=== PATIENT | female | born 1960 | race Caucasian/White ===

== ENCOUNTER → 2016-06-01 | Outpatient (REF) | payer BC | LOC: M LAB REF 16:38 | PROVIDERS: ATTEND Internal Medicine | DX: B34.9 Viral infection, unspecified (principal) ==

== ENCOUNTER → 2016-08-31 | Outpatient (CLI) | payer OTHER ==
--- NOTE | 2016-08-31 10:52 | REP ---
Right hand four views : There is no fracture or dislocation. Mineralization and joint spaces are normal. There are no calcifications or foreign bodies. Impression: Negative right hand . Signed by Fredy Rawls MD 08/31/2016 10:44 A
== END ==
LOC: M WUC 10:16
PROVIDERS: ATTEND Physician Assistant
DX: S60.221A Contusion of right hand, initial encounter (principal); X58.XXXA Exposure to other specified factors, initial encounter; Y92.89 Other specified places as the place of occurrence of the external cause; Y93.89 Activity, other specified; Y99.8 Other external cause status

== ENCOUNTER → 2016-11-11 | Outpatient (REF) | payer BC | LOC: M LAB REF 18:01 | PROVIDERS: ATTEND Nurse Practitioner Family | DX: G40.89 Other seizures (principal) ==

== ENCOUNTER → 2016-11-25 | Outpatient (REF) | payer BC | LOC: M LAB REF 16:36 | PROVIDERS: ATTEND Internal Medicine | DX: F41.9 Anxiety disorder, unspecified (principal); F32.9 Major depressive disorder, single episode, unspecified ==

== ENCOUNTER → 2016-11-25 | Outpatient (CLI) | payer BC ==
--- NOTE | 2016-11-26 06:49 | REP ---
Clinical: Lung screening. History smoking. Comparison: 08/28/2015 Technique: Axial low-dose noncontrast images from the thoracic inlet to the upper abdomen using lung screening technique. Findings: The lung parra demonstrate stable chronic-appearing interstitial changes and biapical scarring similar to prior examination. There is a new subtle subpleural area of opacity along the anterior right upper lobe (images 55 - 58) which may represent progressive scarring and roughly measures approximately 6 mm. No further consolidation, significant nodule or mass lesion is appreciated. No pleural effusion/reaction or pneumothorax. Tracheobronchial tree is patent. Mediastinum demonstrates mild atherosclerotic changes of the coronary arteries without cardiomegaly. Impression: Lung-RADS category III with new subpleural opacity along the anterior right upper lobe. Management recommendations includes 6-month low-dose CT follow-up examination. Signed by Gamaliel Bennett MD 11/26/2016 06:41 A
== END ==
LOC: M RAD 14:26
PROVIDERS: ATTEND Internal Medicine
DX: Z12.2 Encounter for screening for malignant neoplasm of respiratory organs (principal); F17.210 Nicotine dependence, cigarettes, uncomplicated; J98.4 Other disorders of lung

== ENCOUNTER → 2017-01-18 | Outpatient (REF) | payer BC, MEDICAID, SELFPAY | LOC: M LAB REF 17:38 | PROVIDERS: ATTEND Internal Medicine | DX: G40.89 Other seizures (principal) ==

== ENCOUNTER → 2017-05-30 | Outpatient (REF) | payer OTHER ==
[2017-05-30 18:18] LABS: PHENYTOIN (DILANTIN) 15.3 UG/ML (10.0-20.0)
== END ==
LOC: M LAB REF 17:19
DX: G40.89 Other seizures (principal)

== ENCOUNTER → 2017-06-24 | Outpatient (CLI) | payer OTHER | LOC: M RAD 07:59 | DX: Z12.2 Encounter for screening for malignant neoplasm of respiratory organs (principal); F17.210 Nicotine dependence, cigarettes, uncomplicated | CPT/HCPCS: G0297 ==

== ENCOUNTER → 2017-11-29 | Outpatient (REF) | payer OTHER ==
[2017-11-29 17:27] LABS: PHENYTOIN (DILANTIN) 11.3 UG/ML (10.0-20.0)
== END ==
LOC: M LAB REF 16:27
DX: G40.89 Other seizures (principal)
CPT/HCPCS: 80185

== ENCOUNTER 2018-01-07 08:01 | Emergency (ER) | payer OTHER ==
[2018-01-07] MEDS: NS 500 ML IV (09:39)
[2018-01-07] MEDS: ONDANSETRON 4MG/2ML VIAL (J2405) IV ×2 (09:40→12:09)
[2018-01-07 09:55] LABS: BASO % 0.1 % (0.0-1.0); EOS % 0.2 % (0.0-3.0); HEMATOCRIT 39.3 % (36.0-47.0); HEMOGLOBIN 13.5 g/dl (12.0-15.5); IMMATURE GRANULOCYTE % 0.3 % (0-3.0); LYMPH # 1.2 10^3/uL (1.5-4.5); LYMPH % 6.7 % (24.0-44.0); MEAN CORPUSCULAR HEMOGLOBIN 33.3 pg (27.0-33.0); MEAN CORPUSCULAR HGB CONC 34.4 g/dl (32.0-36.5); MONO # 1.1 10^3/uL (0.0-0.8); MONO % 6.2 % (0.0-5.0); NEUTROPHILS % 86.5 % (36.0-66.0); PLATELET COUNT, AUTOMATED 244 10^3/uL (150-450); RED BLOOD COUNT 4.05 10^6/uL (4.00-5.40); RED CELL DISTRIBUTION WIDTH 13.2 % (11.5-14.5); WHITE BLOOD COUNT 18.5 10^3/uL (4.0-10.0)
[2018-01-07 10:12] LABS: PHENYTOIN (DILANTIN) 15.2 UG/ML (10.0-20.0)
[2018-01-07 10:19] LABS: LACTIC ACID SEPSIS PROTOCOL 0.9 MMOL/L (0.4-2.0)
[2018-01-07 10:20] LABS: ALBUMIN 3.4 GM/DL (3.2-5.2); ALKALINE PHOSPHATASE 112 U/L (45-117); ALT/SGPT 20 U/L (12-78); ANION GAP 5 MEQ/L (8-16); AST/SGOT 19 U/L (7-37); BILIRUBIN,DIRECT 0.1 MG/DL (0.0-0.2); BILIRUBIN,TOTAL 0.3 MG/DL (0.2-1.0); BLOOD UREA NITROGEN 13 MG/DL (7-18); CALCIUM LEVEL 7.9 MG/DL (8.5-10.1); CARBON DIOXIDE LEVEL 26 MEQ/L (21-32); CHLORIDE LEVEL 110 MEQ/L (98-107); CPK CREATINE PHOSPHOKINASE 54 U/L (26-192); GLOMERULAR FILTRATION RATE > 60.0 (>51); GLUCOSE, FASTING 100 MG/DL (70-100); LIPASE 149 U/L (73-393); MB/CK RELATIVE INDEX 2.59 (< OR =4); POTASSIUM SERUM 3.8 MEQ/L (3.5-5.1); SODIUM LEVEL 141 MEQ/L (136-145); TOTAL PROTEIN 6.8 GM/DL (6.4-8.2); TROPONIN I < 0.02 NG/ML (< 0.10)
[2018-01-07] MEDS: GASTROGRAFIN SOLUTION 30ML PO ×2 (10:55→11:25)
[2018-01-07] MEDS ORDERED: ISOVUE-370 76% 100ML VIAL (Q9967) As Ordered (11:52)
== END 2018-01-07 13:21 | disposition home or self-care (01) ==
LOC: M ED 08:01
DX: R55 Syncope and collapse (principal); K52.9 Noninfective gastroenteritis and colitis, unspecified; J44.9 Chronic obstructive pulmonary disease, unspecified; E78.5 Hyperlipidemia, unspecified; K21.9 Gastro-esophageal reflux disease without esophagitis; G40.909 Epilepsy, unspecified, not intractable, without status epilepticus; I87.2 Venous insufficiency (chronic) (peripheral); F17.210 Nicotine dependence, cigarettes, uncomplicated
CPT/HCPCS: Q9963

== ENCOUNTER → 2018-05-30 | Outpatient (REF) | payer OTHER ==
[~2018-05-30] MED LIST: ASPI1TAB15 PO; CELE40TA PO; OMEP40CA2 PO; PHEN100C PO; SIMV20TA2 PO; ZOFR4TAB14 PO
== END ==
LOC: M LAB REF 17:46
PROVIDERS: ATTEND Internal Medicine
DX: G40.89 Other seizures (principal)

== ENCOUNTER → 2018-11-01 | Outpatient (REF) | payer OTHER | LOC: M LAB REF 14:45 | PROVIDERS: ATTEND Internal Medicine | DX: R50.9 Fever, unspecified (principal) ==

== ENCOUNTER → 2018-11-07 | Outpatient (REF) | payer OTHER ==
[2018-11-08 09:20] LABS: RUBELLA IgG QUALITATIVE IMMUNE (IMMUNE)
[2018-11-08 14:19] LABS: RUBEOLA IgG ANTIBODY >300.0 AU/mL (Immune >16.4)
== END ==
LOC: M LAB REF 13:24
PROVIDERS: ATTEND Internal Medicine
DX: Z02.1 Encounter for pre-employment examination (principal)

== ENCOUNTER → 2018-11-17 | Outpatient (CLI) | payer OTHER ==
--- NOTE | 2018-11-17 15:08 | REP ---
Low-dose lung screening CT of the chest: Comparisons are 06/24/2017, 11/25/2016 and 08/28/2015. On the 11/25/2069 there was a 7 ml lung nodule, pleural-based, anteriorly in the right upper lobe. This nodule had resolved on 07/01/2017, likely transient atelectasis. This is nodule is not present on the current study. There are no other lung nodules or masses. There are no infiltrates or pleural effusions. There is chronic stable biapical pleuroparenchymal scarring, unchanged from all prior studies. Impression: Category one low-dose lung screening CT of the chest. The probability of malignancy is less than 1%. Depending there is factors consider annual follow-up low-dose lung screening chest CT. Electronically Signed by Fredy Rawls MD 11/17/2018 02:58 P
== END ==
LOC: M RAD 11:54
PROVIDERS: ATTEND Internal Medicine
DX: Z12.2 Encounter for screening for malignant neoplasm of respiratory organs (principal); F17.210 Nicotine dependence, cigarettes, uncomplicated; J98.4 Other disorders of lung

== ENCOUNTER → 2019-09-11 | Outpatient (REF) | payer OTHER ==
[~2019-09-11] MED LIST changes: +ASPI-546 PO; -ASPI1TAB15 PO; -OMEP40CA2 PO; +OMEP40CA97 PO; -SIMV20TA2 PO; +SIMV20TA22 PO
== END ==
LOC: M LAB REF 15:13
PROVIDERS: ATTEND Internal Medicine
DX: G40.89 Other seizures (principal)

== ENCOUNTER → 2019-11-08 | Outpatient (REF) | payer OTHER | LOC: M LAB REF 11:11 | PROVIDERS: ATTEND Internal Medicine | DX: G40.89 Other seizures (principal) ==

== ENCOUNTER → 2020-04-10 | Outpatient (REF) | payer OTHER | LOC: M LAB REF 16:32 | PROVIDERS: ATTEND Internal Medicine | DX: G40.89 Other seizures (principal) ==

== ENCOUNTER → 2020-05-23 | Outpatient (CLI) | payer OTHER ==
--- NOTE | 2020-05-23 10:34 | REP ---
INDICATION: PAIN. COMPARISON: None. TECHNIQUE: There are three views. FINDINGS: Mineralization is normal. The acromioclavicular and glenohumeral articulations are unremarkable. There is no fracture or dislocation. There are no calcifications or foreign bodies. IMPRESSION: Essentially negative right shoulder. <Electronically signed by Fredy Rawls > 05/23/20 1034
--- NOTE | 2020-05-23 10:35 | REP ---
INDICATION: PAIN. COMPARISON: Right shoulder performed this same date. TECHNIQUE: There are three views. FINDINGS: Mineralization is normal. The acromioclavicular and glenohumeral articulations are unremarkable. There are no calcifications or foreign bodies. There is no fracture or dislocation. IMPRESSION: Negative right scapula. <Electronically signed by Fredy Rawls > 05/23/20 1038
== END ==
LOC: M WUC 09:10
PROVIDERS: ATTEND Internal Medicine
DX: M25.512 Pain in left shoulder (principal); M79.602 Pain in left arm

== ENCOUNTER → 2020-10-13 | Outpatient (REF) | payer OTHER ==
[~2020-10-13] MED LIST changes: +OMEP40CA4 PO; -OMEP40CA97 PO
== END ==
LOC: M LAB REF 11:20
PROVIDERS: ATTEND Internal Medicine
DX: G40.89 Other seizures (principal)

== ENCOUNTER → 2021-04-15 | Outpatient (REF) | payer OTHER | LOC: M LAB REF 11:33 | PROVIDERS: ATTEND Internal Medicine | DX: G40.89 Other seizures (principal); Z12.31 Encounter for screening mammogram for malignant neoplasm of breast ==

== ENCOUNTER 2021-05-10 13:45 | Emergency (ER) | payer OTHER ==
[~2021-05-10] VITALS: Ht 165.1 cm; Wt 51.0 kg
[2021-05-10] MEDS ORDERED: MELO15TA28 PO (14:37)
[2021-05-10] MEDS ORDERED: METH4PACK PO (14:37)
[2021-05-10] MEDS ORDERED: KETOROLAC 30 MG/ML 1ML VIAL IV ONE (16:35)
[2021-05-10] MEDS ORDERED: LIDOCAINE 5% (LIDODERM) PATCH TD ONE (16:35)
[2021-05-10] MEDS ORDERED: NS 1,000 ML IV ONE (16:35)
[2021-05-10 17:08] LABS: BASO % 0.4 % (0.0-1.0); EOS # 0.2 10^3/uL (0.0-0.5); EOS % 1.9 % (0.0-3.0); HEMOGLOBIN 14.2 g/dl (12.0-15.5); LYMPH # 4.7 10^3/uL (1.5-5.0); LYMPH % 43.4 % (24.0-44.0); MEAN CORPUSCULAR HEMOGLOBIN 33.6 pg (27.0-33.0); MEAN CORPUSCULAR HGB CONC 34.6 g/dl (32.0-36.5); MEAN CORPUSCULAR VOLUME 96.9 fl (80.0-96.0); MONO # 0.9 10^3/uL (0.0-0.8); MONO % 8.7 % (2.0-8.0); NEUTROPHILS # 4.9 10^3/uL (1.5-8.5); NEUTROPHILS % 45.3 % (36.0-66.0); PLATELET COUNT, AUTOMATED 312 10^3/uL (150-450); RED BLOOD COUNT 4.23 10^6/uL (4.00-5.40); WHITE BLOOD COUNT 10.7 10^3/uL (4.0-10.0)
[2021-05-10] MEDS ORDERED: ISOVUE-370 76% 100ML VIAL As Ordered ONE (17:08)
[2021-05-10 17:31] LABS: ERYTHROCYTE SEDIMENTATION RATE 8 mm/hr (0-30)
[2021-05-10 17:32] LABS: ALBUMIN 4.1 GM/DL (3.2-5.2); BILIRUBIN,DIRECT 0.1 MG/DL (0.0-0.2); BILIRUBIN,TOTAL 0.3 MG/DL (0.2-1.0); C REACTIVE PROTEIN QUANTITATIV 0.31 MG/DL (0.00-0.30); TOTAL PROTEIN 7.8 GM/DL (6.4-8.2)
[2021-05-10] MEDS ORDERED: MIRA3350 PO (19:03)
[2021-05-10] MEDS ORDERED: LACT20EL PO (19:03)
[2021-05-10] MEDS ORDERED: MAGNESIUM CITRATE 300 ML BTL PO ONE (19:05)
[2021-05-10 19:24] VITALS: BP 131/73
[2021-05-10] MEDS ORDERED: **NOTE PATIENT COMMENT** MISC XX SCH (21:00)
== END 2021-05-10 19:26 | disposition home or self-care (01) ==
LOC: M ED 13:45
DX: K59.00 Constipation, unspecified (principal); R10.9 Unspecified abdominal pain; J44.9 Chronic obstructive pulmonary disease, unspecified; K21.9 Gastro-esophageal reflux disease without esophagitis; E78.5 Hyperlipidemia, unspecified; G40.911 Epilepsy, unspecified, intractable, with status epilepticus; F17.200 Nicotine dependence, unspecified, uncomplicated; Z79.899 Other long term (current) drug therapy
CPT/HCPCS: 74177; 80047; 80076; 81001; 83690; 85025; 85652; 86140; 96361; 96374; 99284; J1885; Q9967

== ENCOUNTER → 2021-06-12 | Outpatient (CLI) | payer OTHER ==
[~2021-06-12] MED LIST changes: +ADV250INH INH; +CALC500T68 PO; +LACT20EL PO; +MELO15TA28 PO; +METH4PACK PO; +MIRA3350 PO; +VITA-243 PO; +VITA100093 PO; +VITMTA PO
== END ==
LOC: M LABSMTC 11:36
PROVIDERS: ATTEND Anesthesiology
DX: Z01.812 Encounter for preprocedural laboratory examination (principal); Z20.822 Contact with and (suspected) exposure to COVID-19

== ENCOUNTER 2021-06-16 08:40 | Day surgery (SDC) | payer OTHER ==
[~2021-06-16] VITALS: Ht 165.1 cm; Wt 47.2 kg
[~2021-06-16 08:40] MED LIST changes: +NS 1,000 ML IV ONE
[2021-06-16] MEDS ORDERED: fentaNYL 100 MCG/2 ML INJECTION As Ordered ONE (10:52)
[2021-06-16 12:01] VITALS: BP 125/63
== END 2021-06-16 12:10 | disposition home or self-care (01) ==
LOC: M OPP 08:40
PROVIDERS: ATTEND Internal Medicine Gastroenterology
DX: K63.5 Polyp of colon (principal); K64.8 Other hemorrhoids; R19.5 Other fecal abnormalities; K29.70 Gastritis, unspecified, without bleeding; K31.A19 Gastric intestinal metaplasia without dysplasia, unspecified site; R12 Heartburn; E78.00 Pure hypercholesterolemia, unspecified; J44.9 Chronic obstructive pulmonary disease, unspecified; F17.210 Nicotine dependence, cigarettes, uncomplicated; Z79.82 Long term (current) use of aspirin; Z79.899 Other long term (current) drug therapy; Z91.048 Other nonmedicinal substance allergy status; Z86.69 Personal history of other diseases of the nervous system and sense organs; Z80.1 Family history of malignant neoplasm of trachea, bronchus and lung; Z80.52 Family history of malignant neoplasm of bladder
CPT/HCPCS: 43239; 45380; 45385; 88305; J3010

== ENCOUNTER → 2021-09-14 | Outpatient (REF) | payer OTHER ==
[~2021-09-14] MED LIST changes: +BACT800T5 PO; +DIFL150T PO; -NS 1,000 ML IV ONE
== END ==
LOC: M LAB REF 12:12
PROVIDERS: ATTEND Internal Medicine
DX: Z51.81 Encounter for therapeutic drug level monitoring (principal); Z79.899 Other long term (current) drug therapy

== ENCOUNTER 2021-09-17 11:51 | Emergency (ER) | payer OTHER ==
[~2021-09-17] VITALS: Ht 165.1 cm; Wt 49.7 kg
[~2021-09-17 11:51] MED LIST changes: -BACT800T5 PO; -DIFL150T PO
[2021-09-17] MEDS ORDERED: BACTRIM 160MG/800MG DS TAB PO ONE (13:55)
[2021-09-17] MEDS ORDERED: BACT800T5 PO (13:57)
[2021-09-17 14:03] VITALS: BP 128/61
[2021-09-17] MEDS ORDERED: DIFL150T PO (14:05)
== END 2021-09-17 14:08 | disposition home or self-care (01) ==
LOC: M ED 11:51
DX: L13.1 Subcorneal pustular dermatitis (principal); E78.5 Hyperlipidemia, unspecified; J44.9 Chronic obstructive pulmonary disease, unspecified; G40.89 Other seizures; F17.200 Nicotine dependence, unspecified, uncomplicated; Z91.048 Other nonmedicinal substance allergy status; Z79.899 Other long term (current) drug therapy; Z79.891 Long term (current) use of opiate analgesic; Z79.51 Long term (current) use of inhaled steroids

== ENCOUNTER → 2021-09-22 | Outpatient (REF) | payer OTHER ==
[~2021-09-22] MED LIST changes: +BACT800T5 PO; +DIFL150T PO
== END ==
LOC: M LAB REF 16:17 → EEVIPCON 16:17
PROVIDERS: ATTEND Internal Medicine
DX: L02.424 Furuncle of left upper limb (principal)

== ENCOUNTER → 2022-03-05 | Outpatient (REF) | payer OTHER | LOC: M LAB REF 16:19 | PROVIDERS: ATTEND Internal Medicine | DX: G40.89 Other seizures (principal) ==

== ENCOUNTER → 2022-04-26 | Outpatient (CLI) | payer OTHER | LOC: M RAD 08:41 | PROVIDERS: ATTEND Internal Medicine | DX: R59.0 Localized enlarged lymph nodes (principal) ==

== ENCOUNTER → 2022-09-10 | Outpatient (REF) | payer OTHER ==
[2022-09-10 11:03] LABS: APPEARANCE, URINE HAZY (CLEAR); BACTERIA, URINE AUTO NEGATIVE (NEGATIVE); BILIRUBIN, URINE AUTO NEGATIVE (NEGATIVE); BLOOD, URINE BLOOD 3+ (NEGATIVE); COLOR, URINE RED (YELLOW); GLUCOSE, URINE (UA) AUTO NEGATIVE (NEGATIVE); KETONE, URINE AUTO NEGATIVE (NEGATIVE); LEUKOCYTE ESTERASE, URINE AUTO NEGATIVE (NEGATIVE); NITRITE, URINE AUTO NEGATIVE (NEGATIVE); PROTEIN, URINE AUTO 1+ mg/dL (NEGATIVE); RBC, URINE AUTO TNTC /HPF (0-3); SPECIFIC GRAVITY URINE AUTO 1.009 (1.002-1.035); SQUAMOUS EPITHELIAL CELL UR AU 0 /HPF (0-6); UROBILINOGEN, URINE AUTO 0.2 mg/dL (0.0-2.0); WBC, URINE AUTO 3 /HPF (0-3)
== END ==
LOC: M LAB REF 10:16
PROVIDERS: ATTEND Nurse Practitioner Family
DX: R31.9 Hematuria, unspecified (principal)

== ENCOUNTER → 2022-09-17 | Outpatient (REF) | payer OTHER | LOC: M LAB REF 12:41 | PROVIDERS: ATTEND Nurse Practitioner Family | DX: R31.9 Hematuria, unspecified (principal) ==

== ENCOUNTER → 2022-11-02 | Outpatient (REF) | payer OTHER | LOC: M LAB REF 11:59 | PROVIDERS: ATTEND Internal Medicine | DX: G40.909 Epilepsy, unspecified, not intractable, without status epilepticus (principal) ==

== ENCOUNTER → 2022-11-05 | Outpatient (CLI) | payer OTHER | LOC: M WUC 14:44 | PROVIDERS: ATTEND Internal Medicine | DX: S20.20XA Contusion of thorax, unspecified, initial encounter (principal); W19.XXXA Unspecified fall, initial encounter ==

== ENCOUNTER → 2022-12-16 | Outpatient (CLI) | payer OTHER | LOC: M WUC 15:19 | PROVIDERS: ATTEND Internal Medicine | DX: S30.0XXA Contusion of lower back and pelvis, initial encounter (principal); X58.XXXA Exposure to other specified factors, initial encounter; Y92.9 Unspecified place or not applicable ==

== ENCOUNTER → 2023-05-13 | Outpatient (CLI) | payer SELFPAY | LOC: M RAD 12:13 | PROVIDERS: ATTEND Internal Medicine | DX: R22.32 Localized swelling, mass and lump, left upper limb (principal) ==

== ENCOUNTER → 2023-05-30 | Outpatient (CLI) | payer OTHER, SELFPAY ==
[~2023-05-30] MED LIST changes: +ISOVUE-370 76% 100ML VIAL ONE; +PROHANCE 279.3MG/ML 15ML VIAL ONE
== END ==
LOC: M PLAIMG 13:20
PROVIDERS: ATTEND Internal Medicine
DX: R22.32 Localized swelling, mass and lump, left upper limb (principal); R07.89 Other chest pain; R05.3 Chronic cough
CPT/HCPCS: 70491; 71260; Q9967

== ENCOUNTER → 2023-06-13 | Outpatient (CLI) | payer OTHER, SELFPAY ==
[~2023-06-13] MED LIST changes: -ISOVUE-370 76% 100ML VIAL ONE; -PROHANCE 279.3MG/ML 15ML VIAL ONE
[2023-06-13 12:45] LABS: PLATELET COUNT, AUTOMATED 350 10^3/uL (150-450)
[2023-06-13 13:06] LABS: INR 1.11; PARTIAL THROMBOPLASTIN TIME 29.7 SECONDS (24.8-34.2)
== END ==
LOC: M LAB 12:22
PROVIDERS: ATTEND Internal Medicine Pulmonary Disease
DX: R91.8 Other nonspecific abnormal finding of lung field (principal)

== ENCOUNTER → 2023-07-15 | Outpatient (CLI) | payer OTHER ==
[~2023-07-15] MED LIST changes: +LIDOCAINE 1% MDV 20ML VIAL As Ordered ONE; +MIDAZOLAM INJ 2MG/2ML VIAL As Ordered ONE; +fentaNYL 100 MCG/2 ML INJECTION As Ordered ONE
[2023-07-15 07:50] VITALS: TEMP 98.9
[2023-07-15 08:19] LABS: HEMATOCRIT 38.5 % (36.0-47.0); MEAN CORPUSCULAR HEMOGLOBIN 33.2 pg (27.0-33.0); MEAN CORPUSCULAR HGB CONC 33.8 g/dl (32.0-36.5); MEAN CORPUSCULAR VOLUME 98.2 fl (80.0-96.0); PLATELET COUNT, AUTOMATED 400 10^3/uL (150-450); RED BLOOD COUNT 3.92 10^6/uL (4.00-5.40); WHITE BLOOD COUNT 10.3 10^3/uL (4.0-10.0)
[2023-07-15 08:45] LABS: INR 1.14; PROTHROMBIN TIME 14.3 SECONDS (12.5-14.5)
[2023-07-15 12:15] VITALS: BP 148/67; O2SAT 97
== END ==
LOC: M IRPRO 07:23
PROVIDERS: ATTEND Internal Medicine Pulmonary Disease
DX: R91.1 Solitary pulmonary nodule (principal); C34.91 Malignant neoplasm of unspecified part of right bronchus or lung
CPT/HCPCS: 32408; 85027; 85610; 88305; 99152; 99153; J2250; J3010

== ENCOUNTER → 2023-08-03 | Outpatient (CLI) | payer OTHER ==
[~2023-08-03] MED LIST changes: +ALLO300T2 PO; +CITA40TA7; +FLUT1BLS8; -LIDOCAINE 1% MDV 20ML VIAL As Ordered ONE; -MIDAZOLAM INJ 2MG/2ML VIAL As Ordered ONE; +MUPI2OI; +MYRB50TA; +ONDA-84 PO; +PROC10TA5 PO; -fentaNYL 100 MCG/2 ML INJECTION As Ordered ONE
== END ==
LOC: M ONCR 08:00
PROVIDERS: ATTEND General Practice
DX: C34.11 Malignant neoplasm of upper lobe, right bronchus or lung (principal); Z86.69 Personal history of other diseases of the nervous system and sense organs; F17.210 Nicotine dependence, cigarettes, uncomplicated; Z79.51 Long term (current) use of inhaled steroids; Z79.82 Long term (current) use of aspirin; Z79.899 Other long term (current) drug therapy; Z90.49 Acquired absence of other specified parts of digestive tract; Z90.81 Acquired absence of spleen; Z91.048 Other nonmedicinal substance allergy status

== ENCOUNTER → 2023-08-09 | Outpatient (CLI) | payer OTHER | LOC: M RAD 13:49 | PROVIDERS: ATTEND General Practice | DX: C34.11 Malignant neoplasm of upper lobe, right bronchus or lung (principal) ==

== ENCOUNTER → 2023-08-09 | Outpatient (CLI) | payer OTHER ==
[~2023-08-09] VITALS: Ht 165.1 cm; Wt 48.6 kg
[~2023-08-09] MED LIST changes: +LIDOCAINE 1% MDV 20ML VIAL As Ordered ONE; +LIDOCAINE W/EPINEPHRINE 1% 20ML VIAL As Ordered ONE; +MIDAZOLAM INJ 2MG/2ML VIAL As Ordered ONE; +ceFAZolin 2 GM/D5W 50 ML IV BAG As Ordered ONE; +ceFAZolin SOD 2 GM in IV 1 EA IV ONE; +fentaNYL 100 MCG/2 ML INJECTION As Ordered ONE
[2023-08-09 14:20] VITALS: TEMP 98.8
[2023-08-09 17:09] VITALS: BP 136/64; O2SAT 93
== END ==
LOC: M IRPRO 13:43
PROVIDERS: ATTEND Specialist
DX: C34.90 Malignant neoplasm of unspecified part of unspecified bronchus or lung (principal)
CPT/HCPCS: 36561; 99152; 99153; C1769; J0690; J2250; J3010

== ENCOUNTER → 2023-08-12 | Outpatient (CLI) | payer OTHER ==
[~2023-08-12] MED LIST changes: -LIDOCAINE 1% MDV 20ML VIAL As Ordered ONE; -LIDOCAINE W/EPINEPHRINE 1% 20ML VIAL As Ordered ONE; -MIDAZOLAM INJ 2MG/2ML VIAL As Ordered ONE; +PROHANCE 279.3MG/ML 15ML VIAL As Ordered ONE; -ceFAZolin 2 GM/D5W 50 ML IV BAG As Ordered ONE; -ceFAZolin SOD 2 GM in IV 1 EA IV ONE; -fentaNYL 100 MCG/2 ML INJECTION As Ordered ONE
== END ==
LOC: M RAD 08:51
PROVIDERS: ATTEND Internal Medicine Hematology & Oncology
DX: C34.00 Malignant neoplasm of unspecified main bronchus (principal)
CPT/HCPCS: 70553; A9576

== ENCOUNTER → 2023-09-14 | Outpatient (RCR) | payer OTHER ==
[~2023-09-14] MED LIST changes: +MIRA50TA2; -PROHANCE 279.3MG/ML 15ML VIAL As Ordered ONE
== END ==
LOC: M ONCR 08-24 14:10
PROVIDERS: ATTEND General Practice
DX: Z51.0 Encounter for antineoplastic radiation therapy (principal); C34.11 Malignant neoplasm of upper lobe, right bronchus or lung

== ENCOUNTER 2023-10-12 09:48 | Outpatient (RCR) | payer OTHER ==
[~2023-10-12 09:48] MED LIST changes: -CITA40TA7; +CITA40TA7 PO; +FAMO20TA PO; -FLUT1BLS8; +FLUT1BLS8 INH; +MAGN400T2 PO; +METO10TA2 PO; -MIRA50TA2; +MIRA50TA2 PO
== END 2023-10-15 ==
LOC: M ONCR 09:48
PROVIDERS: ATTEND General Practice
DX: Z51.0 Encounter for antineoplastic radiation therapy (principal); C34.11 Malignant neoplasm of upper lobe, right bronchus or lung

== ENCOUNTER 2023-10-26 15:44 | Inpatient (IN) | payer OTHER ==
[~2023-10-26] VITALS: Ht 165.1 cm; Wt 47.3 kg
[2023-10-26 16:47] LABS: HEMATOCRIT 25.5 % (36.0-47.0); HEMOGLOBIN 8.8 g/dl (12.0-15.5); MEAN CORPUSCULAR HEMOGLOBIN 35.6 pg (27.0-33.0); MEAN CORPUSCULAR HGB CONC 34.5 g/dl (32.0-36.5); MEAN CORPUSCULAR VOLUME 103.2 fl (80.0-96.0); RED BLOOD COUNT 2.47 10^6/uL (4.00-5.40); WHITE BLOOD COUNT 2.7 10^3/uL (4.0-10.0)
[2023-10-26 17:08] LABS: PLATELET COUNT, AUTOMATED 80 10^3/uL (150-450)
[2023-10-26 17:11] LABS: BASOPHILS 1 % (0-1); EOSINOPHILS 1 % (0-3); LYMPHOCYTES 27 % (16-44); MONOCYTES 11 % (0-5); NEUTROPHILS 58 % (28-66); PLATELET ESTIMATE MARKED DECREASE (NORMAL)
[2023-10-26 17:12] LABS: ANISOCYTOSIS 2+
[2023-10-26 17:14] LABS: HOWELL-JOLLY BODIES 1+
[2023-10-26 17:15] LABS: ALBUMIN 3.6 G/DL (3.2-5.2); ALKALINE PHOSPHATASE 115 U/L (46-116); ALT/SGPT 17 U/L (7.0-40); AST/SGOT 14 U/L (<34); BILIRUBIN,TOTAL 0.3 MG/DL (0.3-1.2); BLOOD UREA NITROGEN 10 MG/DL (9-23); CALCIUM LEVEL 8.9 MG/DL (8.3-10.6); CARBON DIOXIDE LEVEL 28 MMOL/L (20-31); CHLORIDE LEVEL 102 MMOL/L (98-107); CREATININE FOR GFR 0.51 MG/DL (0.55-1.30); GLOMERULAR FILTRATION RATE > 60.0 (>45); GLUCOSE, FASTING 106 MG/DL (74-106); POTASSIUM SERUM 3.6 MMOL/L (3.5-5.1); SODIUM LEVEL 133 MMOL/L (136-145); TOTAL PROTEIN 7.1 G/DL (5.7-8.2)
[2023-10-26] MEDS ORDERED: THERTAB52 PO (21:20)
[2023-10-26] MEDS ORDERED: DILA100C PO (21:20)
[2023-10-26] MEDS ORDERED: ALBU8.5H INH (21:21)
[2023-10-26] MEDS ORDERED: HYDR-643 PO (21:21)
[2023-10-26] MEDS ORDERED: HOME MED LIST COMPLETE! XX SCH (21:25)
[2023-10-26] MEDS ORDERED: MOM 30ML SUSPENSION UDC PO PRN (21:35)
[2023-10-26] MEDS ORDERED: ACETAMINOPHEN TAB 650MG DOSE (2X325MG) PO PRN (21:35)
[2023-10-26] MEDS ORDERED: ALBUTEROL 90 MCG/ACT 8GM HFA INHALER INH PRN (21:50)
[2023-10-26 22:51] VITALS: BP 126/58; TEMP 97.7; O2SAT 95
[2023-10-26] MEDS: PHENYTOIN ER 100 MG CAP PO SCH (23:11)
[2023-10-26] MEDS: CitaloPRAM (CeleXA) 20 MG TAB PO SCH (23:11)
[2023-10-26] MEDS: ASPIRIN 81MG ENTERIC TABLET PO SCH (23:12)
[2023-10-26] MEDS: NS 1,000 ML IV SCH (23:12)
[2023-10-26] MEDS: ASCORBIC ACID 500 MG TAB PO SCH (23:12)
[2023-10-26] MEDS: SIMVASTATIN 20 MG TAB PO SCH (23:12)
[2023-10-26] MEDS: FAMOTIDINE 20 MG TAB PO SCH (23:12)
[2023-10-26] MEDS: PIPERACILLIN/TAZOBACTAM SOD 4.5 GM in D5W MINI-BAG PLUS 50 ML IV SCH (23:13)
[2023-10-27 04:00] VITALS: BP 112/51; TEMP 98.1; O2SAT 96
[2023-10-27 06:04] LABS: HEMATOCRIT 24.2 % (36.0-47.0); HEMOGLOBIN 8.3 g/dl (12.0-15.5); MEAN CORPUSCULAR HEMOGLOBIN 35.6 pg (27.0-33.0); MEAN CORPUSCULAR HGB CONC 34.3 g/dl (32.0-36.5); MEAN CORPUSCULAR VOLUME 103.9 fl (80.0-96.0); RED BLOOD COUNT 2.33 10^6/uL (4.00-5.40); WHITE BLOOD COUNT 2.2 10^3/uL (4.0-10.0)
[2023-10-27 06:27] LABS: PLATELET COUNT, AUTOMATED 68 10^3/uL (150-450)
[2023-10-27 06:30] LABS: ALBUMIN 3.1 G/DL (3.2-5.2); ALKALINE PHOSPHATASE 105 U/L (46-116); ALT/SGPT 13 U/L (7.0-40); AST/SGOT 14 U/L (<34); BILIRUBIN,TOTAL 0.4 MG/DL (0.3-1.2); BLOOD UREA NITROGEN 8 MG/DL (9-23); CALCIUM LEVEL 8.7 MG/DL (8.3-10.6); CARBON DIOXIDE LEVEL 27 MMOL/L (20-31); CHLORIDE LEVEL 109 MMOL/L (98-107); CREATININE FOR GFR 0.49 MG/DL (0.55-1.30); GLOMERULAR FILTRATION RATE > 60.0 (>45); GLUCOSE, FASTING 99 MG/DL (74-106); POTASSIUM SERUM 3.9 MMOL/L (3.5-5.1); SODIUM LEVEL 137 MMOL/L (136-145); TOTAL PROTEIN 6.4 G/DL (5.7-8.2)
[2023-10-27 07:30] VITALS: BP 133/58; TEMP 97.7; O2SAT 95
[2023-10-27] MEDS: DOCUSATE SODIUM 100MG CAPSULE PO SCH (08:14)
[2023-10-27] MEDS: VITAMIN D 1,000 INTERNATIONAL UNITS TABLET PO SCH (08:15)
[2023-10-27] MEDS: OMEPRAZOLE 20MG CAP PO SCH (08:15)
[2023-10-27] MEDS: PHENYTOIN ER 100 MG CAP PO SCH (08:15)
[2023-10-27 12:25] VITALS: BP 136/63; TEMP 97.6; O2SAT 97
[2023-10-28] MEDS ORDERED: PHENYTOIN ER 100 MG CAP PO SCH ×2 (09:00→21:00)
== END 2023-10-27 15:27 | disposition home or self-care (01) | DRG 204 ==
LOC: M ED 15:44 → M ED INP 21:34 → M PCU 22:45
PROVIDERS: ADMIT Family Medicine; ATTEND Family Medicine
DX: R55 Syncope and collapse (principal); C34.90 Malignant neoplasm of unspecified part of unspecified bronchus or lung; R29.6 Repeated falls; I10 Essential (primary) hypertension; E78.5 Hyperlipidemia, unspecified; J44.9 Chronic obstructive pulmonary disease, unspecified; F41.9 Anxiety disorder, unspecified; F32.A Depression, unspecified; D61.810 Antineoplastic chemotherapy induced pancytopenia; D84.9 Immunodeficiency, unspecified; G40.909 Epilepsy, unspecified, not intractable, without status epilepticus; K21.9 Gastro-esophageal reflux disease without esophagitis; Z79.82 Long term (current) use of aspirin; Z79.899 Other long term (current) drug therapy; Z91.048 Other nonmedicinal substance allergy status; Z90.49 Acquired absence of other specified parts of digestive tract; Z98.42 Cataract extraction status, left eye; Z98.41 Cataract extraction status, right eye; Z90.79 Acquired absence of other genital organ(s)

== ENCOUNTER → 2023-10-27 | Outpatient (CLI) | payer OTHER ==
[~2023-10-27] MED LIST changes: +ALBU8.5H INH; +DILA100C PO; +HYDR-643 PO; +THERTAB52 PO
== END ==
LOC: M EKG 15:30
PROVIDERS: ATTEND Student in an Organized Health Care Education/Training Program
DX: R55 Syncope and collapse (principal)

== ENCOUNTER → 2023-11-21 | Outpatient (CLI) | payer OTHER ==
[~2023-11-21] MED LIST changes: +PROHANCE 279.3MG/ML 5ML VIAL As Ordered ONE
== END ==
LOC: M RAD 12:05
PROVIDERS: ATTEND General Practice
DX: C34.11 Malignant neoplasm of upper lobe, right bronchus or lung (principal)
CPT/HCPCS: 70553; A9576

== ENCOUNTER → 2023-11-24 | Outpatient (CLI) | payer OTHER ==
[~2023-11-24] MED LIST changes: +GASTROGRAFIN SOLUTION 30ML As Ordered ONE; +ISOVUE-370 76% 100ML VIAL As Ordered ONE; -PROHANCE 279.3MG/ML 5ML VIAL As Ordered ONE
[2023-11-24 12:19] LABS: BASO % 0.3 % (0.0-1.0); EOS # 0.1 10^3/uL (0.0-0.5); EOS % 2.5 % (0.0-3.0); HEMATOCRIT 25.4 % (36.0-47.0); HEMOGLOBIN 8.6 g/dl (12.0-15.5); LYMPH # 1.1 10^3/uL (1.5-5.0); LYMPH % 29.8 % (24.0-44.0); MEAN CORPUSCULAR HEMOGLOBIN 39.3 pg (27.0-33.0); MEAN CORPUSCULAR HGB CONC 33.9 g/dl (32.0-36.5); MONO # 0.6 10^3/uL (0.0-0.8); MONO % 16.4 % (2.0-8.0); NEUTROPHILS # 1.9 10^3/uL (1.5-8.5); NEUTROPHILS % 50.7 % (36.0-66.0); PLATELET COUNT, AUTOMATED 178 10^3/uL (150-450); RED BLOOD COUNT 2.19 10^6/uL (4.00-5.40); WHITE BLOOD COUNT 3.7 10^3/uL (4.0-10.0)
[2023-11-24 14:04] LABS: ALBUMIN 3.4 G/DL (3.2-5.2); ALKALINE PHOSPHATASE 167 U/L (46-116); ALT/SGPT 10 U/L (7.0-40); AST/SGOT 10 U/L (<34); BILIRUBIN,TOTAL 0.2 MG/DL (0.3-1.2); BLOOD UREA NITROGEN 10 MG/DL (9-23); CALCIUM LEVEL 9.3 MG/DL (8.3-10.6); CARBON DIOXIDE LEVEL 29 MMOL/L (20-31); CHLORIDE LEVEL 102 MMOL/L (98-107); CREATININE FOR GFR 0.49 MG/DL (0.55-1.30); GLOMERULAR FILTRATION RATE > 60.0 (>45); GLUCOSE, FASTING 122 MG/DL (74-106); MAGNESIUM LEVEL 1.6 MG/DL (1.8-2.4); POTASSIUM SERUM 3.9 MMOL/L (3.5-5.1); SODIUM LEVEL 135 MMOL/L (136-145); TOTAL PROTEIN 7.2 G/DL (5.7-8.2)
== END ==
LOC: M RAD 11:16
PROVIDERS: ATTEND Internal Medicine Hematology & Oncology
DX: R07.89 Other chest pain (principal); R05.3 Chronic cough; C34.90 Malignant neoplasm of unspecified part of unspecified bronchus or lung
CPT/HCPCS: 71260; 74177; 80053; 83735; 85025; Q9963; Q9967

== ENCOUNTER → 2023-12-08 | Outpatient (CLI) | payer OTHER ==
[~2023-12-08] MED LIST changes: -GASTROGRAFIN SOLUTION 30ML As Ordered ONE; -ISOVUE-370 76% 100ML VIAL As Ordered ONE; +MEMA10TA PO
== END ==
LOC: M ONCR 15:30
PROVIDERS: ATTEND General Practice
DX: C34.11 Malignant neoplasm of upper lobe, right bronchus or lung (principal); Z87.891 Personal history of nicotine dependence; Z79.899 Other long term (current) drug therapy; Z79.51 Long term (current) use of inhaled steroids; Z79.82 Long term (current) use of aspirin; Z91.048 Other nonmedicinal substance allergy status; Z92.21 Personal history of antineoplastic chemotherapy; Z92.3 Personal history of irradiation

== ENCOUNTER → 2023-12-29 | Outpatient (REF) | payer OTHER ==
[~2023-12-29] MED LIST changes: +ONDA-282 PO
== END ==
LOC: M LAB REF 13:42
PROVIDERS: ATTEND Internal Medicine
DX: G40.909 Epilepsy, unspecified, not intractable, without status epilepticus (principal)

== ENCOUNTER 2024-01-11 13:57 | Outpatient (RCR) | payer OTHER ==
[~2024-01-11 13:57] MED LIST changes: -ADV250INH INH; +ADVA1AER9 INH
== END 2024-01-14 ==
LOC: M ONCR 13:57
PROVIDERS: ATTEND General Practice
DX: Z51.0 Encounter for antineoplastic radiation therapy (principal); C34.11 Malignant neoplasm of upper lobe, right bronchus or lung

== ENCOUNTER → 2024-01-24 | Outpatient (REF) | payer OTHER | LOC: M LAB REF 17:18 | PROVIDERS: ATTEND Internal Medicine | DX: G40.909 Epilepsy, unspecified, not intractable, without status epilepticus (principal) ==

== ENCOUNTER → 2024-03-12 | Outpatient (REF) | payer OTHER ==
[~2024-03-12] MED LIST changes: +LIDO30CR18 TOP
== END ==
LOC: M LAB REF 16:08
PROVIDERS: ATTEND Internal Medicine
DX: N39.0 Urinary tract infection, site not specified (principal)

== ENCOUNTER → 2024-04-06 | Outpatient (CLI) | payer OTHER ==
[~2024-04-06] MED LIST changes: +PROHANCE 279.3MG/ML 5ML VIAL As Ordered ONE
== END ==
LOC: M RAD 12:22
PROVIDERS: ATTEND General Practice
DX: Z51.0 Encounter for antineoplastic radiation therapy (principal); C34.11 Malignant neoplasm of upper lobe, right bronchus or lung
CPT/HCPCS: 70553; A9576

== ENCOUNTER → 2024-04-13 | Outpatient (CLI) | payer OTHER ==
[~2024-04-13] MED LIST changes: -PROHANCE 279.3MG/ML 5ML VIAL As Ordered ONE
== END ==
LOC: M ONCR 13:20
PROVIDERS: ATTEND General Practice
DX: C34.11 Malignant neoplasm of upper lobe, right bronchus or lung (principal); Z92.21 Personal history of antineoplastic chemotherapy; Z92.3 Personal history of irradiation; Z79.620 Long term (current) use of immunosuppressive biologic; Z90.49 Acquired absence of other specified parts of digestive tract; Z91.048 Other nonmedicinal substance allergy status; Z79.82 Long term (current) use of aspirin; Z79.899 Other long term (current) drug therapy; Z87.440 Personal history of urinary (tract) infections

== ENCOUNTER → 2024-05-10 | Outpatient (CLI) | payer OTHER ==
[~2024-05-10] MED LIST changes: +ISOVUE-370 76% 100ML VIAL As Ordered ONE
== END ==
LOC: M RAD 08:39
PROVIDERS: ATTEND Specialist
DX: C34.11 Malignant neoplasm of upper lobe, right bronchus or lung (principal); R93.2 Abnormal findings on diagnostic imaging of liver and biliary tract
CPT/HCPCS: 71260; Q9967

== ENCOUNTER → 2024-07-04 | Outpatient (CLI) | payer MEDICAID, OTHER, SELFPAY ==
[~2024-07-04] MED LIST changes: +HYDR-3713 PO; -ISOVUE-370 76% 100ML VIAL As Ordered ONE; +ONDA-284 PO; +PROHANCE 279.3MG/ML 5ML VIAL As Ordered ONE; +VARE1TAB7
== END ==
LOC: M RAD 12:13
PROVIDERS: ATTEND General Practice
DX: C34.11 Malignant neoplasm of upper lobe, right bronchus or lung (principal)
CPT/HCPCS: 70553; A9576

== ENCOUNTER 2024-08-10 10:53 | Outpatient (RCR) | payer OTHER ==
[~2024-08-10 10:53] MED LIST changes: +DEXA4TA PO; +OXYC-517 PO; +OXYC10TA12 PO; +OXYC20TA40 PO; +PRED20TA PO; -PROHANCE 279.3MG/ML 5ML VIAL As Ordered ONE; +SENN-186 PO; +VARE1TAB2 PO; +XTAM18CA PO
[2024-08-15] MEDS ORDERED: OXYC20TA40 PO (10:27)
== END 2024-08-13 ==
LOC: M ONCR 10:53
PROVIDERS: ATTEND General Practice
DX: Z51.0 Encounter for antineoplastic radiation therapy (principal); C34.11 Malignant neoplasm of upper lobe, right bronchus or lung

== ENCOUNTER 2024-08-15 12:01 | Outpatient (RCR) | payer OTHER ==
[2024-08-28] MEDS ORDERED: OXYC10TA12 PO (08:52)
[2024-09-03] MEDS ORDERED: DEXA4TA PO (12:50)
== END 2024-09-13 ==
LOC: M ONCR 12:01
PROVIDERS: ATTEND General Practice
DX: Z51.0 Encounter for antineoplastic radiation therapy (principal); C34.11 Malignant neoplasm of upper lobe, right bronchus or lung

== ENCOUNTER → 2024-08-22 | Outpatient (CLI) | payer OTHER | LOC: M ONCR 10:23 | PROVIDERS: ATTEND General Practice | DX: R52 Pain, unspecified (principal); Z92.3 Personal history of irradiation ==

== ENCOUNTER → 2024-08-22 | Outpatient (CLI) | payer MEDICAID, OTHER ==
[~2024-08-22] VITALS: Ht 157.5 cm; Wt 47.1 kg
[2024-08-22 10:41] VITALS: BP 106/62; O2SAT 96
== END ==
LOC: M PAL 10:16
PROVIDERS: ATTEND Physician Assistant
DX: Z51.5 Encounter for palliative care (principal); Z66 Do not resuscitate; C34.92 Malignant neoplasm of unspecified part of left bronchus or lung; C78.7 Secondary malignant neoplasm of liver and intrahepatic bile duct; Z79.891 Long term (current) use of opiate analgesic; Z91.048 Other nonmedicinal substance allergy status; Z79.82 Long term (current) use of aspirin; Z79.899 Other long term (current) drug therapy; Z79.83 Long term (current) use of bisphosphonates

== ENCOUNTER → 2024-09-08 | Outpatient (CLI) | payer OTHER ==
[2024-09-08 11:01] LABS: BASO # 0.0 10^3/uL (0.0-0.2); BASO % 0.0 % (0.0-1.0); EOS # 0.1 10^3/uL (0.0-0.5); EOS % 4.2 % (0.0-3.0); LYMPH # 0.9 10^3/uL (1.5-5.0); LYMPH % 32.2 % (24.0-44.0); MONO # 0.7 10^3/uL (0.0-0.8); MONO % 27.3 % (2.0-8.0); NEUTROPHILS # 1.0 10^3/uL (1.5-8.5); NEUTROPHILS % 35.9 % (36.0-66.0)
[2024-09-08 11:39] LABS: PLATELET COUNT, AUTOMATED 27 10^3/uL (150-450)
== END ==
LOC: M LAB 08:38
PROVIDERS: ATTEND Internal Medicine Hematology & Oncology
DX: D69.6 Thrombocytopenia, unspecified (principal)

== ENCOUNTER → 2024-10-12 | Outpatient (CLI) | payer OTHER ==
[~2024-10-12] MED LIST changes: +MAGN500T12 PO; +PROHANCE 279.3MG/ML 5ML VIAL As Ordered ONE
== END ==
LOC: M RAD 12:12
PROVIDERS: ATTEND General Practice
DX: Z51.0 Encounter for antineoplastic radiation therapy (principal); C34.90 Malignant neoplasm of unspecified part of unspecified bronchus or lung

== ENCOUNTER → 2024-10-19 | Outpatient (CLI) | payer OTHER ==
[~2024-10-19] MED LIST changes: -PROHANCE 279.3MG/ML 5ML VIAL As Ordered ONE
== END ==
LOC: M ONCR 10:28
PROVIDERS: ATTEND General Practice
DX: C34.11 Malignant neoplasm of upper lobe, right bronchus or lung (principal); C78.7 Secondary malignant neoplasm of liver and intrahepatic bile duct; Z87.891 Personal history of nicotine dependence; Z92.21 Personal history of antineoplastic chemotherapy; Z92.3 Personal history of irradiation; Z91.048 Other nonmedicinal substance allergy status; Z79.51 Long term (current) use of inhaled steroids; Z79.82 Long term (current) use of aspirin; Z79.899 Other long term (current) drug therapy

== ENCOUNTER → 2024-10-23 | Outpatient (CLI) | payer OTHER ==
[~2024-10-23] MED LIST changes: +ISOVUE-370 76% 100 ML VIAL As Ordered ONE
== END ==
LOC: M RAD 09:04
PROVIDERS: ATTEND Specialist
DX: C34.11 Malignant neoplasm of upper lobe, right bronchus or lung (principal); J43.2 Centrilobular emphysema; J90 Pleural effusion, not elsewhere classified; J98.11 Atelectasis; C78.7 Secondary malignant neoplasm of liver and intrahepatic bile duct
CPT/HCPCS: 71260; Q9967

== ENCOUNTER 2024-10-29 11:25 | Emergency (ER) | payer OTHER ==
[~2024-10-29] VITALS: Ht 165.1 cm; Wt 45.5 kg
[~2024-10-29 11:25] MED LIST changes: -ISOVUE-370 76% 100 ML VIAL As Ordered ONE
[2024-10-29 13:12] VITALS: BP 128/65
[2024-10-29] MEDS: METOPROLOL 5 MG/5 ML VIAL IV SCH (13:12)
[2024-10-29] MEDS ORDERED: ISOVUE-370 76% 100 ML VIAL As Ordered ONE (13:22)
[2024-10-29 13:27] LABS: BASO # 0.0 10^3/uL (0.0-0.2); BASO % 0.3 % (0.0-1.0); EOS # 0.0 10^3/uL (0.0-0.5); EOS % 0.0 % (0.0-3.0); LYMPH # 0.8 10^3/uL (1.5-5.0); LYMPH % 6.5 % (24.0-44.0); MONO # 2.0 10^3/uL (0.0-0.8); MONO % 17.1 % (2.0-8.0); NEUTROPHILS # 9.0 10^3/uL (1.5-8.5); NEUTROPHILS % 75.3 % (36.0-66.0); PLATELET COUNT, AUTOMATED 226 10^3/uL (150-450)
[2024-10-29 13:36] LABS: INR 1.19
[2024-10-29 13:51] LABS: MAGNESIUM LEVEL 1.7 MG/DL (1.8-2.4)
[2024-10-29 13:55] LABS: FREE T4 1.18 NG/DL (0.89-1.76)
[2024-10-29] MEDS ORDERED: METOPROLOL TART 12.5 MG PER 1/2 TAB PO ONE (14:40)
[2024-10-29] MEDS ORDERED: METOPROLOL TART 25 MG TABLET PO ONE (14:40)
[2024-10-29] MEDS ORDERED: LOVE1INJ SC (16:14)
[2024-10-29] MEDS ORDERED: WARF-23 PO (16:14)
[2024-10-29 16:15] VITALS: BP 136/68; TEMP 100.3; O2SAT 98
[2024-10-29] MEDS ORDERED: METO1TAB87 PO (16:36)
[2024-10-29] MEDS: ENOXAPARIN 100 MG/1 ML SYRINGE (J1650 PER 10MG) SC ONE (16:38)
[2024-10-29] MEDS: WARFARIN SOD 5MG TAB PO ONE (16:38)
== END 2024-10-29 16:47 | disposition home or self-care (01) ==
LOC: M ED 11:25
DX: I48.91 Unspecified atrial fibrillation (principal); R06.00 Dyspnea, unspecified; I45.10 Unspecified right bundle-branch block; J44.9 Chronic obstructive pulmonary disease, unspecified; C34.90 Malignant neoplasm of unspecified part of unspecified bronchus or lung; F17.200 Nicotine dependence, unspecified, uncomplicated; Z91.048 Other nonmedicinal substance allergy status; Z79.52 Long term (current) use of systemic steroids; Z79.82 Long term (current) use of aspirin; Z79.83 Long term (current) use of bisphosphonates; Z79.899 Other long term (current) drug therapy; Z79.01 Long term (current) use of anticoagulants
CPT/HCPCS: 71275; 80047; 83735; 83880; 84439; 84443; 85025; 85610; 85730; 87486; 87581; 87633; 87798; 93005; 93041; 96372; 96374; 99285; J0616; J1650; Q9967

== ENCOUNTER → 2024-11-22 | Outpatient (CLI) | payer OTHER ==
[~2024-11-22] MED LIST changes: +DEXA2TA PO; +LOVE1INJ SC; +METO1TAB87 PO; +WARF-23 PO; +XARE20TA
== END ==
LOC: M ONCR 10:31
PROVIDERS: ATTEND General Practice
DX: C34.11 Malignant neoplasm of upper lobe, right bronchus or lung (principal); R10.11 Right upper quadrant pain; Z79.891 Long term (current) use of opiate analgesic; Z92.21 Personal history of antineoplastic chemotherapy

== ENCOUNTER → 2024-11-22 | Outpatient (CLI) | payer OTHER ==
[2024-11-22 10:37] VITALS: BP 102/60; O2SAT 93
== END ==
LOC: M PAL 10:29
PROVIDERS: ATTEND Physician Assistant
DX: Z51.5 Encounter for palliative care (principal); Z66 Do not resuscitate; C34.90 Malignant neoplasm of unspecified part of unspecified bronchus or lung; C78.7 Secondary malignant neoplasm of liver and intrahepatic bile duct; Z79.891 Long term (current) use of opiate analgesic; Z91.048 Other nonmedicinal substance allergy status; Z79.899 Other long term (current) drug therapy; Z79.82 Long term (current) use of aspirin; Z79.52 Long term (current) use of systemic steroids

== ENCOUNTER 2024-12-15 18:37 | Observation (INO) | payer MEDICAID, OTHER ==
[~2024-12-15] VITALS: Ht 165.1 cm; Wt 46.8 kg
[~2024-12-15 18:37] MED LIST changes: -XARE20TA; +XARE20TA PO
[2024-12-15 19:39] LABS: BASO # 0.0 10^3/uL (0.0-0.2); BASO % 0.2 % (0.0-1.0); EOS # 0.0 10^3/uL (0.0-0.5); EOS % 0.7 % (0.0-3.0); LYMPH # 0.6 10^3/uL (1.5-5.0); LYMPH % 10.1 % (24.0-44.0); MONO # 1.0 10^3/uL (0.0-0.8); MONO % 19.0 % (2.0-8.0); NEUTROPHILS # 3.8 10^3/uL (1.5-8.5); NEUTROPHILS % 69.6 % (36.0-66.0); PLATELET COUNT, AUTOMATED 176 10^3/uL (150-450)
[2024-12-15 20:16] LABS: ALT/SGPT 45 U/L (7.0-40); AST/SGOT 175 U/L (<34); CALCIUM LEVEL 9.1 MG/DL (8.3-10.6); CARBON DIOXIDE LEVEL 28 MMOL/L (20-31); CHLORIDE LEVEL 103 MMOL/L (98-107); CREATININE FOR GFR 0.54 MG/DL (0.55-1.30); GLOMERULAR FILTRATION RATE > 90.0 (>45); MAGNESIUM LEVEL 1.8 MG/DL (1.8-2.4); POTASSIUM SERUM 4.6 MMOL/L (3.5-5.1); SODIUM LEVEL 137 MMOL/L (136-145)
[2024-12-15] MEDS: oxyCODONE 20MG CR TAB PO ONE (21:56)
[2024-12-15] MEDS: NS (Normal Saline) 0.9% 1,000 ML IV ONE (22:14)
[2024-12-16 01:03] LABS: KETONE, URINE AUTO RFX TRACE mg/dL (NEGATIVE); LEUKOCYTE ESTERASE UR AUTO RFX NEGATIVE (NEGATIVE); MUCUS, URINE RFX LARGE (NEGATIVE); NITRITE, URINE AUTO RFX NEGATIVE (NEGATIVE); RBC, URINE AUTO RFX 2 /HPF (0-3); SQUAM EPITHELIAL CELL UR AURFX 4 /HPF (0-6)
[2024-12-16 01:04] LABS: WBC, URINE AUTO RFX 23 /HPF (0-3)
[2024-12-16] MEDS ORDERED: ACETAMINOPHEN 325 MG TAB PO PRN (03:50)
[2024-12-16] MEDS ORDERED: ONDANSETRON 4MG/2ML VIAL IV PRN (03:50)
[2024-12-16] MEDS: NS (Normal Saline) 0.9% 1,000 ML IV SCH (04:56)
[2024-12-16] MEDS ORDERED: METO25TA4 PO (07:30)
[2024-12-16] MEDS ORDERED: ENOX60IN3 SQ (07:38)
[2024-12-16] MEDS ORDERED: HOME MED LIST COMPLETE! XX SCH (07:40)
[2024-12-16] MEDS: IPRATROPIUM 0.5 MG/ALBUTEROL 2.5 MG INH SOL UD 3 ML NEB SCH (08:29)
[2024-12-16 09:57] LABS: PLATELET COUNT, AUTOMATED 184 10^3/uL (150-450)
[2024-12-16] MEDS: DOCUSATE SODIUM 100 MG CAPSULE PO SCH (09:57)
[2024-12-16 10:23] LABS: ALT/SGPT 47 U/L (7.0-40); AST/SGOT 187 U/L (<34); CALCIUM LEVEL 9.1 MG/DL (8.3-10.6); CARBON DIOXIDE LEVEL 28 MMOL/L (20-31); CHLORIDE LEVEL 101 MMOL/L (98-107); CREATININE FOR GFR 0.51 MG/DL (0.55-1.30); GLOMERULAR FILTRATION RATE > 90.0 (>45); MAGNESIUM LEVEL 1.7 MG/DL (1.8-2.4); POTASSIUM SERUM 4.6 MMOL/L (3.5-5.1); SODIUM LEVEL 135 MMOL/L (136-145)
[2024-12-16 12:00] VITALS: BP 135/63; TEMP 97.4; O2SAT 92
[2024-12-16 20:00] VITALS: BP 144/71; TEMP 98.1; O2SAT 96
[2024-12-16] MEDS: ASPIRIN 81 MG ENTERIC TABLET PO SCH (20:08)
[2024-12-16] MEDS: oxyCODONE 20MG CR TAB PO SCH (20:09)
[2024-12-16] MEDS: METOPROLOL TART 12.5 MG PER 1/2 TAB PO SCH (20:11)
[2024-12-16] MEDS: ENOXAPARIN 60 MG/0.6 ML SYRINGE (J1650 PER 10MG) SQ SCH (20:14)
[2024-12-16] MEDS: PHENYTOIN ER 100 MG CAP PO SCH (20:43)
[2024-12-17 04:00] VITALS: BP 123/54; TEMP 97.2; O2SAT 94
[2024-12-17 06:21] LABS: PLATELET COUNT, AUTOMATED 181 10^3/uL (150-450)
[2024-12-17 06:57] LABS: ALT/SGPT 43 U/L (7.0-40); AST/SGOT 162 U/L (<34); CALCIUM LEVEL 8.5 MG/DL (8.3-10.6); CARBON DIOXIDE LEVEL 26 MMOL/L (20-31); CHLORIDE LEVEL 103 MMOL/L (98-107); CREATININE FOR GFR 0.49 MG/DL (0.55-1.30); GLOMERULAR FILTRATION RATE > 90.0 (>45); MAGNESIUM LEVEL 1.6 MG/DL (1.8-2.4); POTASSIUM SERUM 4.2 MMOL/L (3.5-5.1); SODIUM LEVEL 136 MMOL/L (136-145)
[2024-12-17 09:00] VITALS: BP 133/63; TEMP 97.9; O2SAT 90
[2024-12-17] MEDS: OMEPRAZOLE 20MG CAP PO SCH (09:24)
[2024-12-17] MEDS: MIRALAX *UNIT DOSE* 17 GM PACKET PO SCH ×2 (09:25→20:09)
[2024-12-17] MEDS: MAG SULF 1GM/100ML (MAG RUN) 1 GM in IV 1 EA IV ONE (09:27)
[2024-12-17] MEDS: MOM 30 ML SUSPENSION UDC PO PRN (09:34)
[2024-12-17] MEDS: SENNOSIDES/DOCUSATE SODIUM 8.6 MG/50MG TAB PO SCH (11:21)
[2024-12-17] MEDS: FLUZONE VACCINE TRI PF(25-26) 0.5ML SYRINGE IM.IMMUN ONE (11:21)
[2024-12-17 11:41] VITALS: BP 100/58; TEMP 96.8; O2SAT 95
[2024-12-17 20:37] VITALS: BP 108/60; TEMP 97.7; O2SAT 95
[2024-12-17 21:26] LABS: KETONE, URINE AUTO RFX TRACE mg/dL (NEGATIVE); MUCUS, URINE RFX SMALL (NEGATIVE); NITRITE, URINE AUTO RFX NEGATIVE (NEGATIVE); RBC, URINE AUTO RFX 67 /HPF (0-3); SQUAM EPITHELIAL CELL UR AURFX 4 /HPF (0-6)
[2024-12-17 21:30] LABS: LEUKOCYTE ESTERASE UR AUTO RFX 1+ (NEGATIVE); WBC, URINE AUTO RFX 113 /HPF (0-3)
[2024-12-18 03:50] VITALS: BP 111/60; TEMP 97.7; O2SAT 96
[2024-12-18 07:02] LABS: PLATELET COUNT, AUTOMATED 188 10^3/uL (150-450)
[2024-12-18 07:32] LABS: ALT/SGPT 43 U/L (7.0-40); AST/SGOT 146 U/L (<34); CALCIUM LEVEL 8.6 MG/DL (8.3-10.6); CARBON DIOXIDE LEVEL 25 MMOL/L (20-31); CHLORIDE LEVEL 105 MMOL/L (98-107); CREATININE FOR GFR 0.45 MG/DL (0.55-1.30); GLOMERULAR FILTRATION RATE > 90.0 (>45); MAGNESIUM LEVEL 1.7 MG/DL (1.8-2.4); POTASSIUM SERUM 4.4 MMOL/L (3.5-5.1); SODIUM LEVEL 138 MMOL/L (136-145)
[2024-12-18] MEDS: cefTRIAXone SOD 2 GM in DEXTROSE 5% (D5W) ADV/MINI-BAG 50 ML IV SCH (08:10)
[2024-12-18 12:00] VITALS: BP 115/49; TEMP 97.9; O2SAT 95
[2024-12-18 20:12] VITALS: BP 129/61; TEMP 98.7; O2SAT 94
[2024-12-19 04:34] VITALS: BP 122/56; TEMP 99.3; O2SAT 92
[2024-12-19 06:21] LABS: PLATELET COUNT, AUTOMATED 203 10^3/uL (150-450)
[2024-12-19 06:54] LABS: ALT/SGPT 45 U/L (7.0-40); AST/SGOT 156 U/L (<34); CALCIUM LEVEL 8.9 MG/DL (8.3-10.6); CARBON DIOXIDE LEVEL 25 MMOL/L (20-31); CHLORIDE LEVEL 103 MMOL/L (98-107); CREATININE FOR GFR 0.49 MG/DL (0.55-1.30); GLOMERULAR FILTRATION RATE > 90.0 (>45); MAGNESIUM LEVEL 1.7 MG/DL (1.8-2.4); POTASSIUM SERUM 4.4 MMOL/L (3.5-5.1); SODIUM LEVEL 136 MMOL/L (136-145)
[2024-12-19] MEDS: MAG SULF 1GM/100ML (MAG RUN) 1 GM in IV 1 EA IV SCH (10:10)
[2024-12-19 12:00] VITALS: BP 113/56; TEMP 97.3; O2SAT 94
[2024-12-19] MEDS ORDERED: IPRATROPIUM 0.5 MG/ALBUTEROL 2.5 MG INH SOL UD 3 ML NEB PRN (12:15)
[2024-12-19 20:13] VITALS: BP 119/55; TEMP 98.5; O2SAT 95
[2024-12-19] MEDS: SENNOSIDES/DOCUSATE SODIUM 8.6 MG/50MG TAB PO SCH (20:29)
[2024-12-20 03:50] VITALS: BP 136/65; TEMP 98.3; O2SAT 92
[2024-12-20 06:47] LABS: PLATELET COUNT, AUTOMATED 219 10^3/uL (150-450)
[2024-12-20 07:10] LABS: ALT/SGPT 45 U/L (7.0-40); AST/SGOT 174 U/L (<34); CALCIUM LEVEL 8.7 MG/DL (8.3-10.6); CARBON DIOXIDE LEVEL 27 MMOL/L (20-31); CHLORIDE LEVEL 99 MMOL/L (98-107); CREATININE FOR GFR 0.46 MG/DL (0.55-1.30); GLOMERULAR FILTRATION RATE > 90.0 (>45); MAGNESIUM LEVEL 1.8 MG/DL (1.8-2.4); POTASSIUM SERUM 4.6 MMOL/L (3.5-5.1); SODIUM LEVEL 132 MMOL/L (136-145)
[2024-12-20 08:05] VITALS: BP_SYST 110; BP_DIAS 52; BP_DIAS 57
[2024-12-20 12:00] VITALS: BP 112/56; TEMP 98.7; O2SAT 98
[2024-12-20 20:55] VITALS: TEMP 98.7; O2SAT 95
[2024-12-21 04:46] VITALS: BP 137/61; TEMP 98.1; O2SAT 92
[2024-12-21] MEDS: CEFPODOXIME PROXETIL 200 MG TABLET PO SCH (10:30)
[2024-12-21] MEDS: PHENYTOIN ER 100 MG CAP PO SCH (10:31)
[2024-12-21 11:57] VITALS: BP 114/57; TEMP 98.7; O2SAT 91
[2024-12-21 19:56] VITALS: BP 119/55; TEMP 97.8; O2SAT 91
[2024-12-22 04:17] VITALS: BP 128/59; TEMP 98.1; O2SAT 92
[2024-12-22 11:50] VITALS: BP 116/55; TEMP 99.2; O2SAT 89
[2024-12-22 20:10] VITALS: BP 127/58; TEMP 98.2; O2SAT 93
[2024-12-23 04:16] VITALS: BP 126/60; TEMP 98.9; O2SAT 92
[2024-12-23] MEDS: ENOXAPARIN 40 MG/0.4 ML SYRINGE (J1650 PER 10MG) SQ SCH (08:17)
[2024-12-23 12:00] VITALS: BP 128/59; TEMP 98.3; O2SAT 94
[2024-12-23 20:04] VITALS: BP 135/66; TEMP 98.5; O2SAT 93
[2024-12-24 04:15] VITALS: BP 135/62; TEMP 98; O2SAT 90
[2024-12-24 12:00] VITALS: BP 132/60; TEMP 97.8; O2SAT 92
[2024-12-24 20:00] VITALS: BP 129/63; TEMP 98.9; O2SAT 90
[2024-12-25 04:00] VITALS: BP 118/56; TEMP 97; O2SAT 92
[2024-12-25 15:12] VITALS: BP 120/57; TEMP 99; O2SAT 90
[2024-12-25 20:00] VITALS: BP 121/58; TEMP 98; O2SAT 94
[2024-12-26 04:00] VITALS: BP 127/59; TEMP 97.6; O2SAT 90
[2024-12-26 12:00] VITALS: BP 118/56; TEMP 98; O2SAT 90
[2024-12-26 19:34] VITALS: BP 112/56; TEMP 97.9; O2SAT 88
[2024-12-27 04:14] VITALS: BP 128/61; TEMP 94.7; O2SAT 88
[2024-12-27 09:21] LABS: BASO # 0.0 10^3/uL (0.0-0.2); BASO % 0.2 % (0.0-1.0); EOS # 0.0 10^3/uL (0.0-0.5); EOS % 0.1 % (0.0-3.0); LYMPH # 0.6 10^3/uL (1.5-5.0); LYMPH % 6.9 % (24.0-44.0); MONO # 1.3 10^3/uL (0.0-0.8); MONO % 15.4 % (2.0-8.0); NEUTROPHILS # 6.5 10^3/uL (1.5-8.5); NEUTROPHILS % 76.7 % (36.0-66.0); PLATELET COUNT, AUTOMATED 320 10^3/uL (150-450)
[2024-12-27 09:50] LABS: C REACTIVE PROTEIN QUANTITATIV 7.69 MG/DL (<1.0)
[2024-12-27 10:06] LABS: ALT/SGPT 60 U/L (7.0-40); AST/SGOT 286 U/L (<34); CALCIUM LEVEL 10.1 MG/DL (8.3-10.6); CARBON DIOXIDE LEVEL 28 MMOL/L (20-31); CHLORIDE LEVEL 100 MMOL/L (98-107); CREATININE FOR GFR 0.61 MG/DL (0.55-1.30); GLOMERULAR FILTRATION RATE > 90.0 (>45); POTASSIUM SERUM 4.4 MMOL/L (3.5-5.1); SODIUM LEVEL 135 MMOL/L (136-145)
[2024-12-27 10:07] VITALS: TEMP 97.6
[2024-12-27 12:00] VITALS: BP 98/54; TEMP 98.2; O2SAT 90
[2024-12-27] MEDS: NS (Normal Saline) 0.9% 1,000 ML IV SCH (12:59)
[2024-12-27] MEDS: NS (Normal Saline) 0.9% 1,000 ML IV ONE (17:30)
[2024-12-27] MEDS: cefTRIAXone SOD 2 GM in DEXTROSE 5% (D5W) ADV/MINI-BAG 50 ML IV SCH (18:48)
[2024-12-27 20:08] VITALS: BP 109/52; TEMP 98.4; O2SAT 90
[2024-12-28 03:37] VITALS: BP 113/57; TEMP 97.2; O2SAT 89
[2024-12-28 07:06] LABS: BASO # 0.0 10^3/uL (0.0-0.2); BASO % 0.3 % (0.0-1.0); EOS # 0.0 10^3/uL (0.0-0.5); EOS % 0.1 % (0.0-3.0); LYMPH # 0.6 10^3/uL (1.5-5.0); LYMPH % 6.7 % (24.0-44.0); MONO # 1.3 10^3/uL (0.0-0.8); MONO % 15.4 % (2.0-8.0); NEUTROPHILS # 6.7 10^3/uL (1.5-8.5); NEUTROPHILS % 77.2 % (36.0-66.0); PLATELET COUNT, AUTOMATED 284 10^3/uL (150-450)
[2024-12-28 07:28] LABS: C REACTIVE PROTEIN QUANTITATIV 6.82 MG/DL (<1.0)
[2024-12-28 07:54] LABS: ALT/SGPT 60 U/L (7.0-40); AST/SGOT 270 U/L (<34); CALCIUM LEVEL 9.7 MG/DL (8.3-10.6); CARBON DIOXIDE LEVEL 27 MMOL/L (20-31); CHLORIDE LEVEL 103 MMOL/L (98-107); CREATININE FOR GFR 0.60 MG/DL (0.55-1.30); GLOMERULAR FILTRATION RATE > 90.0 (>45); POTASSIUM SERUM 4.2 MMOL/L (3.5-5.1); SODIUM LEVEL 136 MMOL/L (136-145)
[2024-12-28] MEDS: NS (Normal Saline) 0.9% 1,000 ML IV ONE (08:38)
[2024-12-28] MEDS: KETOROLAC 30 MG/ML 1 ML VIAL IV ONE (08:39)
[2024-12-28 08:50] VITALS: BP 123/57
[2024-12-28 12:46] VITALS: BP 100/52; TEMP 97.6; O2SAT 90
[2024-12-28] MEDS ORDERED: PHENYTOIN ER 100 MG CAP PO SCH ×3 (21:00)
== END 2024-12-28 14:47 | disposition hospice, inpatient (51) ==
LOC: M ED 18:37 → EDBD 18:37 → M ED INP 18:38 → EEVIPCON 18:38 → M MSPAV 12-16 13:13
PROVIDERS: ADMIT Internal Medicine; ATTEND General Practice
DX: E86.0 Dehydration (principal); R53.1 Weakness; C34.90 Malignant neoplasm of unspecified part of unspecified bronchus or lung; C78.7 Secondary malignant neoplasm of liver and intrahepatic bile duct; N39.0 Urinary tract infection, site not specified; R62.7 Adult failure to thrive; R33.9 Retention of urine, unspecified; R68.0 Hypothermia, not associated with low environmental temperature; Z23 Encounter for immunization; E87.20 Acidosis, unspecified; R74.01 Elevation of levels of liver transaminase levels; R53.81 Other malaise; F05 Delirium due to known physiological condition; G89.29 Other chronic pain; G43.909 Migraine, unspecified, not intractable, without status migrainosus; I10 Essential (primary) hypertension; J44.9 Chronic obstructive pulmonary disease, unspecified; K21.9 Gastro-esophageal reflux disease without esophagitis; Z79.01 Long term (current) use of anticoagulants; Z79.899 Other long term (current) drug therapy; Z79.82 Long term (current) use of aspirin; E78.5 Hyperlipidemia, unspecified; I48.0 Paroxysmal atrial fibrillation
CPT/HCPCS: 36415; 51701; 71045; 74176; 76705; 80053; 80185; 81001; 83605; 83735; 84145; 85025; 85027; 85652; 86140; 87040; 87086; 87486; 87581; 87633; 87798; 90656; 93005; 94640; 94760; 96361; 96365; 96372; 96375; 96376; 97116; 97161; 97164; 97530; 99285; G0008; J0696; J1650; J1885; J3475